=== PATIENT | female | born 1945 ===

== ENCOUNTER 2018-04-16 06:37 | Inpatient (IN) | payer OTHER ==
[2018-04-11 10:47] VITALS: BMI 25.5
[2018-04-16 07:20] LABS: HEMOGLOBIN 14.6 g/dL (12.0-16.0); MEAN CELL VOLUME 94.3 fl (81.0-99.0); MEAN CORPUSCULAR HEMOGLOBIN 31.6 pg (27.0-31.0); MEAN CORPUSCULAR HGB CONC 33.6 g/dL (33.0-37.0); RBC 4.61 Mil/uL (3.80-5.20); RED CELL DISTRIBUTION WIDTH 13.7 % (11.5-14.5); WHITE BLOOD COUNT 6.7 K/uL (4.8-10.8)
--- NOTE | 2018-04-16 07:20 | CP.PCM.HP ---
History of Present Illness - History of Present Illness History of Present Illness: PMD: Dr max Orthopedic: Dr Ledesma Chief complaint: Right knee pain HPI: This is a 73 years old female with hx of HTN, Hypothyroidism and Osteoarthritis of the right knee. She has been treated with Analgesics, right knee Intraarticular injections and physical therapy without much improvement. So because of the failure of conservative treatment, she has come for an elective Right Total knee replacement. PMH: HTN; Hypothyroidism PSH: Hysterectomy SH: No illegal drug use; no Alcohol use ; Never smoked; live with family FH: States: No known family hx Allergies; NKDA Medication: reviewed Present on Admission - Present on Admission Any Indicators Present on Admission: No History of DVT/PE: No History of Uncontrolled Diabetes: No Urinary Catheter: No Decubitus Ulcer Present: No Review of Systems - Constitutional Constitutional: absent: Anorexia, Chills, Fever, Lethargy - EENT Eyes: absent: Blurred Vision, Diplopia, Floaters, Requires Corrective Lenses Ears: absent: Decreased Hearing, Ear Discharge, Tinnitus Nose/Mouth/Throat: absent: Epistaxis, Nasal Congestion, Nasal Discharge, Sinus Pain, Sinus Pressure - Cardiovascular Cardiovascular: absent: Chest Pain, Dyspnea, Edema - Respiratory Respiratory: absent: Cough, Dyspnea, Wheezing, Stridor - Gastrointestinal Gastrointestinal: absent: Constipation, Diarrhea, Nausea, Vomiting - Genitourinary Genitourinary: absent: Dysuria, Flank Pain, Urinary Frequency - Musculoskeletal Musculoskeletal: Arthralgias. absent: Back Pain, Joint Swelling - Integumentary Integumentary: absent: Non-Healing Lesions, Pruritus, Rash, Sores, Striae, Swelling - Neurological Neurological: absent: Confusion, Dizziness, Headaches - Psychiatric Psychiatric: absent: Anxiety, Depression, Panic Attacks - Endocrine Endocrine: absent: Palpitations, Polydipsia, Polyphagia, Polyuria - Hematologic/Lymphatic Hematologic: absent: Easy Bleeding Past Patient History - Past Medical History & Family History Past Medical History?: Yes - Past Social History Smoking Status: Never Smoked Chewing Tobacco Use: No Cigar Use: No Alcohol: None Drugs: Denies Home Situation {Lives}: With Family - CARDIAC Hx Cardiac Disorders: Yes Hx Hypertension: Yes - PULMONARY Hx Respiratory Disorders: No - NEUROLOGICAL Hx Neurological Disorder: No - HEENT Hx HEENT Problems: Yes Hx Cataracts: Yes (left) - RENAL Hx Chronic Kidney Disease: No - ENDOCRINE/METABOLIC Hx Endocrine Disorders: Yes Hx Hypothyroidism: Yes - HEMATOLOGICAL/ONCOLOGICAL Hx Blood Disorders: No - INTEGUMENTARY Hx Dermatological Problems: No - MUSCULOSKELETAL/RHEUMATOLOGICAL Hx Musculoskeletal Disorders: Yes Hx Arthritis: Yes (knees) - GASTROINTESTINAL Hx Gastrointestinal Disorders: No - GENITOURINARY/GYNECOLOGICAL Hx Genitourinary Disorders: No - PSYCHIATRIC Hx Psychophysiologic Disorder: No - SURGICAL HISTORY Hx Surgeries: No - ANESTHESIA Hx Anesthesia: No Hx Anesthesia Reactions: No Meds Allergies/Adverse Reactions: Allergies Allergy/AdvReac Type Severity Reaction Status Date / Time No Known Allergies Allergy Verified 04/11/18 10:48 Physical Exam - Constitutional Appears: No Acute Distress - Head Exam Head Exam: ATRAUMATIC, NORMAL INSPECTION, NORMOCEPHALIC - Eye Exam Eye Exam: EOMI, Normal appearance Pupil Exam: NORMAL ACCOMODATION, PERRL - ENT Exam ENT Exam: Mucous Membranes Moist, Normal Exam, Normal External Ear Exam - Neck Exam Neck exam: Positive for: Full Rom, Normal Inspection. Negative for: Lymphadenopathy, Tenderness - Respiratory Exam Respiratory Exam: Clear to Auscultation Bilateral. absent: Rales, Rhonchi, Wheezes - Cardiovascular Exam Cardiovascular Exam: REGULAR RHYTHM, +S1, +S2 - GI/Abdominal Exam GI & Abdominal Exam: Normal Bowel Sounds, Soft. absent: Mass, Tenderness - Rectal Exam Rectal Exam: Deferred - Extremities Exam Extremities exam: Positive for: normal inspection Additional comments: Right knee painful of flexion - Back Exam Back exam: FULL ROM, NORMAL INSPECTION. absent: CVA tenderness (L), CVA tenderness (R) - Neurological Exam Neurological exam: Alert, CN II-XII Intact, Oriented x3, Reflexes Normal - Psychiatric Exam Psychiatric exam: Normal Affect, Normal Mood - Skin Skin Exam: Normal Color, Warm Results - Labs Result Diagrams: 04/16/18 06:55 Assessment & Plan - Assessment and Plan (Free Text) Assessment: #. Osteoarthritisof the Right knee #. HTN #. Hypothyroidism Plan: 73 years old female with hx of HTN, Hypothyroidism and Osteoarthritis of the right knee. She has been treated with Analgesics, right knee Intraarticular injections and physical therapy without much improvement. So because of the failure of conservative treatment, she has come for an elective Right Total knee replacement. #. Osteoarthritis of the Right knee - Consult Dr Ledesma - Orthopedic management - Pain management - OT/PY post surgery #. HTN - Norvasc - Follow blood pressure #. Hypothyroidism - Synthroid #. DVT prophylaxis with SCD/ Start Lovenox on 04/17/19 #. code status: Full - Date & Time Date: 04/16/18 Time: 07:19
--- NOTE | 2018-04-16 07:42 | CP.PCM.CON ---
History of Present Illness - History of Present Illness History of Present Illness: Orthopedic consult: Dr. Ledesma Patient is a 73 y/o female with PMH of HTN and hypothyroidism presents for elective R TKA. The patient has had chronic R knee pain for many years which has progressively worsened over the past few months. The pain has been resistant to conservative management with PT, oral medications as well as intra-articular injections. She normally ambulates with the use of a cane but has required a wheelchair to transfer due to the pain. The paint is located diffuse about the knee, dull in quality and intermittent. The pain is associated with swelling. She denies any radiation of pain, numbness or tingling. She also denies CP/SOB/N/V/D/fever/dysuria/melena. She also denies cardiac/pulmonary/thromboembolic events in the past. Review of Systems - Review of Systems All systems: reviewed and no additional remarkable complaints except Review of Systems: as per HPI Past Patient History - Past Medical History & Family History Past Medical History?: Yes Past Family History: Reviewed and not pertinent - Past Social History Smoking Status: Never Smoked Alcohol: None Drugs: Denies - CARDIAC Hx Cardiac Disorders: Yes Hx Hypertension: Yes - PULMONARY Hx Respiratory Disorders: No - NEUROLOGICAL Hx Neurological Disorder: No - HEENT Hx HEENT Problems: Yes Hx Cataracts: Yes (left) - RENAL Hx Chronic Kidney Disease: No - ENDOCRINE/METABOLIC Hx Endocrine Disorders: Yes Hx Hypothyroidism: Yes - HEMATOLOGICAL/ONCOLOGICAL Hx Blood Disorders: No - INTEGUMENTARY Hx Dermatological Problems: No - MUSCULOSKELETAL/RHEUMATOLOGICAL Hx Musculoskeletal Disorders: Yes Hx Arthritis: Yes (knees) - GASTROINTESTINAL Hx Gastrointestinal Disorders: No - GENITOURINARY/GYNECOLOGICAL Hx Genitourinary Disorders: No - PSYCHIATRIC Hx Psychophysiologic Disorder: No - SURGICAL HISTORY Hx Surgeries: Yes Hx Hysterectomy: Yes - ANESTHESIA Hx Anesthesia: Yes Hx Anesthesia Reactions: No Meds Allergies/Adverse Reactions: Allergies Allergy/AdvReac Type Severity Reaction Status Date / Time No Known Allergies Allergy Verified 04/11/18 10:48 - Medications Medications: Boniva, amlodipine, Vit D, calcium, pantoprazole, levothyroxine, Olapatadine Physical Exam - Constitutional Appears: Well, No Acute Distress - Head Exam Head Exam: ATRAUMATIC, NORMOCEPHALIC - Eye Exam Eye Exam: EOMI, Normal appearance, PERRL - ENT Exam ENT Exam: Mucous Membranes Moist - Respiratory Exam Respiratory Exam: Clear to Auscultation Bilateral, NORMAL BREATHING PATTERN - Cardiovascular Exam Cardiovascular Exam: +S1, +S2 - GI/Abdominal Exam GI & Abdominal Exam: Normal Bowel Sounds, Soft - Extremities Exam Additional comments: R knee: mild swelling, mild effusion, medial tenderness sensation intact SP/DP/TN motor intact EHL/FHL/TA/G pedal pulses intact comps soft NT b/l L knee: mild swelling, mild effusion, medial tenderness sensation intact SP/DP/TN motor intact EHL/FHL/TA/G pedal pulses intact - Neurological Exam Neurological exam: Alert, Oriented x3 - Psychiatric Exam Psychiatric exam: Normal Affect, Normal Mood - Skin Skin Exam: Normal Color, Warm Results - Labs Result Diagrams: 04/16/18 06:55 Labs: Laboratory Results - last 24 hr 04/16/18 06:55 BBK History Checked No verified bt Assessment & Plan (1) Osteoarthritis of right knee Assessment and Plan: -OR today for R TKA -admit to Hospitalist -medical clearance in chart -NPO -Risks/benefits/alternatives were explained to the patient who understands and agrees to proceed with the above procedure -above d/w Dr. Ledesma in agreement Status: Acute
[2018-04-16] MEDS ORDERED: Lactated Ringer's 1,000 ML IV ONE ×2 (07:49→10:45)
--- NOTE | 2018-04-16 08:46 | CP.PCM.CON ---
History of Present Illness - History of Present Illness History of Present Illness: THE PATIENT IS A 73 YEAR OLD FEMALE WHO WAS ADMITTED TODAY VIA SDS FOR A RIGHT TKR. SHE HAS LONG STANDING RIGHT KNEE OA THAT WAS NOT RELIEVED WITH CONSERVATIVE TREATMENT INCLUDING ORAL MEDICATIONS AND KNEE INJECTIONS. SHE HAS A DIFFICULT TIME AMBULATION. SHE ALSO HAS A HISTORY OF HYPERTENSION AND HYPOTHYROIDISM. SHE DENIES ANY HISTORY OF CAD, CHEST PAIN OR SOB. Past Patient History - Past Medical History & Family History Past Medical History?: Yes - Past Social History Smoking Status: Never Smoked - CARDIAC Hx Cardiac Disorders: Yes Hx Hypertension: Yes - PULMONARY Hx Respiratory Disorders: No - NEUROLOGICAL Hx Neurological Disorder: No - HEENT Hx HEENT Problems: Yes Hx Cataracts: Yes (left) - RENAL Hx Chronic Kidney Disease: No - ENDOCRINE/METABOLIC Hx Endocrine Disorders: Yes Hx Hypothyroidism: Yes - HEMATOLOGICAL/ONCOLOGICAL Hx Blood Disorders: No - INTEGUMENTARY Hx Dermatological Problems: No - MUSCULOSKELETAL/RHEUMATOLOGICAL Hx Musculoskeletal Disorders: Yes Hx Arthritis: Yes (knees) - GASTROINTESTINAL Hx Gastrointestinal Disorders: No - GENITOURINARY/GYNECOLOGICAL Hx Genitourinary Disorders: No - PSYCHIATRIC Hx Psychophysiologic Disorder: No - SURGICAL HISTORY Hx Surgeries: No - ANESTHESIA Hx Anesthesia: No Hx Anesthesia Reactions: No Meds Allergies/Adverse Reactions: Allergies Allergy/AdvReac Type Severity Reaction Status Date / Time No Known Allergies Allergy Verified 04/11/18 10:48 - Medications Medications: Current Medications Tranexamic Acid 1,000 mg/ (Sodium Chloride) 110 mls @ 12.5 mls/hr IVPB ONCE ONE Stop: 04/16/18 17:47 Physical Exam - Respiratory Exam Respiratory Exam: Clear to Auscultation Bilateral - Cardiovascular Exam Cardiovascular Exam: REGULAR RHYTHM, +S1, +S2 - Extremities Exam Additional comments: NO LE EDEMA - Additional Findings Additional findings: PAT LABS REVIEWED Results - Vital Signs Recent Vital Signs: Last Vital Signs Temp 98 F 04/16/18 07:40 Pulse 92 H 04/16/18 07:44 Resp 20 04/16/18 07:40 BP 153/66 H 04/16/18 07:40 Pulse Ox 98 04/16/18 07:40 - Labs Result Diagrams: 04/16/18 06:55 Labs: Laboratory Results - last 24 hr 04/16/18 04/16/18 06:55 06:55 WBC 6.7 RBC 4.61 Hgb 14.6 Hct 43.5 MCV 94.3 MCH 31.6 H MCHC 33.6 RDW 13.7 Plt Count 363 BBK History Checked No verified bt Assessment & Plan - Assessment and Plan (Free Text) Assessment: RIGHT KNEE OA HYPERTENSION HYPOTHYROIDISM Plan: PATIENT IS CLEARED FOR SURGERY
[2018-04-16] MEDS ORDERED: ceFAZolin IV 2 gm in Dextrose 2 GM/50 ML BAG IVPB ONE (08:52)
[2018-04-16] MEDS ORDERED: Thrombin Topical 5,000 Int Units Spray Kit ONE (08:52)
[2018-04-16] MEDS ORDERED: GELATIN SPONGE,ABSORB/PORCINE 1 EACH SPONGE TP ONE (08:52)
[2018-04-16] MEDS ORDERED: Bacitracin Ointment 30 GM TUBE ONE (08:54)
[2018-04-16] MEDS ORDERED: Propofol 10 mg/ml Inj (20 ML) ONE (09:00)
[2018-04-16] MEDS ORDERED: Tranexamic Acid 1,000 MG in Sodium Chloride 0.9% 100 ML IVPB ONE (09:00)
[2018-04-16] MEDS ORDERED: Rocuronium 10 mg/ml (5 ml) ONE ×2 (09:00→09:56)
[2018-04-16] MEDS ORDERED: oxyCODONE 10 mg Immediate Release Tab PO PRN (12:01)
[2018-04-16] MEDS ORDERED: Bupivacaine HCl 0.5% PF (30 ml) Inj ONE (12:04)
--- NOTE | 2018-04-16 12:32 | PCM.ANESB3 ---
Femoral Nerve Block - Femoral Nerve Block Date of Procedure: 04/16/18 Anesthesiologist: Estevan Reardon Pre-Procedure Diagnosis: Right TKR Post-Procedure Diagnosis: same Procedure Performed: Femoral Nerve Block Right - Procedure Femoral Nerve Block: The procedure was explained to the patient that it is for the post-operative pain management. Consent was obtained after a thorough discussion with the patient regarding the benefits and possible complications of local anesthetic block of the femoral nerve at the inguinal crease area. The patient was brought to the operating room and standard monitors were applied. Time-out was held with the circulating nurse to confirm the correct surgery and the appropriate block. After applying oxygen by nasal cannula and administering IV Sedation, patient was placed in supine position with fully extended lower extremities and the right groin exposed. The femoral artery was then carefully palpated. The ultrasound transducer was then applied to this area in the transverse plane and the femoral nerve was visualized lateral to the femoral artery and underneath the fascia iliaca. After thorough identification, the inguinal crease area was prepped with Betadine solution three times and 1 % Lidocaine was injected subcutaneously for topical anesthesia. At this point, a #22 gauge Stimuplex 2-inch needle was inserted immediately lateral to the femoral artery pulse at the inguinal crease and advanced perpendicularly. The needle was inserted to the ultrasound transducer in-plane towards the femoral nerve in a [id number] direction. Needle advancement was performed carefully under direct ultrasound visualization. Nerve stimulator was used and twitch of the quadriceps muscle was obtained at current of _0.3____ MA. After negative aspiration, _5____cc of _0.5____% ___bupiv was injected and this was followed with __20____ cc of _0.5 % ___bupiv___ . Under ultrasound guidance the local anesthetics were observed spreading below fascia iliaca and around the femoral nerve. The needle was removed intact and sterile dressing was applied. The patient had stable vital signs, was conscious and in no apparent distress. The patient tolerated the femoral nerve block well with stable vital signs and was prepared for subsequent surgery.
[2018-04-16] MEDS ORDERED: Neostigmine 1:1000 (1 mg/ml) Inj ONE (12:34)
--- NOTE | 2018-04-16 13:43 | PCM.SURG1 ---
Surgeon's Initial Post Op Note - Surgeon's Notes Surgeon: Callie Makeup Artist: ADAN Caro Type of Anesthesia: General Endo, Block Regional Anesthesia Administered By: DR Db Duffy Pre-Operative Diagnosis: tricompartmental O/A R knee. Anterior and posterior synovitis Operative Findings: tricompartmental O/A R knee. anterior anmd posterior synvoitis R knee. posterior capsular contracture. lateral patella contrcature Post-Operative Diagnosis: tricompartmental O/A R knee. anterior and posterior synovectomy. posterior capsular release. lateral patella release. computer navigation Operation Performed: R TKR. anterior and posterior synovectomy. postertior capsular release. lateral patella release. computer navigation Specimen/Specimens Removed: synovial fluid aspirate. blood Estimated Blood Loss: EBL {In ML}: 22 Blood Products Given: N/A Drains Used: No Drains, Chest Tubes Post-Op Condition: Fair Date of Surgery/Procedure: 04/16/18 Time of Surgery/Procedure: 10:05 (time in room 9AM)
--- NOTE | 2018-04-16 13:57 | RAD ---
Date of service: 04/16/2018 PROCEDURE: Right Knee Radiographs. HISTORY: s/p R TKA COMPARISON: None. FINDINGS: The patient is status post total right knee arthroplasty with prosthetic components seen in good alignment. A small amount expected air and fluid is seen in the suprapatellar bursa. Skin neri are present anteriorly. IMPRESSION: Status post total right knee arthroplasty.
[2018-04-16] MEDS: Lactated Ringer's 1,000 ML IV SCH (16:17)
[2018-04-16] MEDS: ceFAZolin IV 2 gm in Dextrose 2 GM/50 ML BAG IVPB SCH (17:55)
[2018-04-17] MEDS: ceFAZolin IV 2 gm in Dextrose 2 GM/50 ML BAG IVPB SCH (01:33)
[2018-04-17] MEDS: Lactated Ringer's 1,000 ML IV SCH (01:34)
[2018-04-17 06:27] LABS: BLOOD UREA NITROGEN 7 mg/dl (7-17); CALCIUM 8.8 mg/dL (8.4-10.2); GFR NON-AFRICAN AMERICAN > 60; HEMOGLOBIN 11.6 g/dL (12.0-16.0); MEAN CELL VOLUME 93.6 fl (81.0-99.0); MEAN CORPUSCULAR HEMOGLOBIN 32.3 pg (27.0-31.0); MEAN CORPUSCULAR HGB CONC 34.5 g/dL (33.0-37.0); RBC 3.59 Mil/uL (3.80-5.20); RED CELL DISTRIBUTION WIDTH 13.6 % (11.5-14.5); WHITE BLOOD COUNT 8.6 K/uL (4.8-10.8)
[2018-04-17 06:49] LABS: INR 1.1; PROTHROMBIN TIME 11.8 Seconds (9.8-13.1)
--- NOTE | 2018-04-17 08:32 | CP.PCM.PN ---
Subjective - Date & Time of Evaluation Date of Evaluation: 04/17/18 Time of Evaluation: 07:45 - Subjective Subjective: NO CHEST PAIN OR SOB PAIN AT RIGHT KNEE SURGICAL SITE Objective - Vital Signs/Intake and Output Vital Signs (last 24 hours): Temp Pulse Resp BP Pulse Ox 97.8 F 90 18 120/70 96 04/17/18 07:57 04/17/18 07:57 04/17/18 07:57 04/17/18 07:57 04/17/18 07:57 - Medications Medications: Current Medications Acetaminophen (Tylenol 325mg Tab) 975 mg PO Q8 [facility] Last Admin: 04/17/18 01:37 Dose: 975 mg Docusate Sodium (Colace) 100 mg PO BID [facility] Last Admin: 04/16/18 16:16 Dose: 100 mg Enoxaparin Sodium (Lovenox) 40 mg SC DAILY [facility]; Protocol Ferrous Sulfate (Feosol) 325 mg PO TID [facility] Last Admin: 04/16/18 16:16 Dose: 325 mg Folic Acid (Folic Acid) 1 mg PO DAILY [facility] Lactated Ringer's (Lactated Ringer's) 1,000 mls @ 75 mls/hr IV .[id number] [facility] Last Admin: 04/17/18 01:34 Dose: 75 mls/hr Morphine Sulfate (Morphine) 2 mg IVP Q4 PRN PRN Reason: Pain, severe (8-10) Ondansetron HCl (Zofran Inj) 4 mg IVP ONCE PRN PRN Reason: Nausea/Vomiting Oxycodone HCl (Oxycodone Immediate Release Tab) 10 mg PO Q4 PRN PRN Reason: Pain, moderate (4-7) - Labs Labs: 04/17/18 05:25 04/17/18 05:25 PT 11.8 Seconds (9.8-13.1) 04/17/18 05:25 INR 1.1 04/17/18 05:25 - Respiratory Exam Respiratory Exam: Clear to Ausculation Bilateral - Cardiovascular Exam Cardiovascular Exam: REGULAR RHYTHM, +S1, +S2 - Extremities Exam Additional comments: RLE IN IMMOBILIZER LLE NO EDEMA - Additional Findings Additional findings: OR NOTES REVIEWED WITH RIGHT TKR Assessment and Plan - Assessment and Plan (Free Text) Assessment: RIGHT TKR FOR SEVERE OA HYPERTENSION Plan: CONTINUE LOVENOX AND PAIN MEDICATIONS WILL RESUME AMLODIPINE ONCE BP BEGINS TO RISE
[2018-04-17] MEDS ORDERED: Enoxaparin 40 mg Syringe SC SCH (09:00)
--- NOTE | 2018-04-17 09:41 | CP.PCM.PN ---
Addendum entered by Sheila Cruz MD 04/17/18 17:55: Full Code Surrogate decision maker - son Viral Original Note: <Gerry Gonzalez - Last Filed: 04/17/18 09:37> Subjective - Date & Time of Evaluation Date of Evaluation: 04/17/18 Time of Evaluation: 08:00 - Subjective Subjective: Pt is seen and examined at bedside. Pt is s/p day 1 presented. Pt had no acute event overnight, Pt slept well, she was using her spirometer when seen. Pt have no complain, ready to see the PT/OT. Pt denies any chest pain sob, abd pain diarrhea constipation or any other symptoms Objective - Vital Signs/Intake and Output Vital Signs (last 24 hours): Temp Pulse Resp BP Pulse Ox 97.8 F 90 18 120/70 96 04/17/18 07:57 04/17/18 07:57 04/17/18 07:57 04/17/18 07:57 04/17/18 07:57 - Medications Medications: Current Medications Acetaminophen (Tylenol 325mg Tab) 975 mg PO Q8 [facility] Last Admin: 04/17/18 08:30 Dose: 975 mg Docusate Sodium (Colace) 100 mg PO BID [facility] Last Admin: 04/17/18 08:29 Dose: 100 mg Enoxaparin Sodium (Lovenox) 40 mg SC DAILY [facility]; Protocol Ferrous Sulfate (Feosol) 325 mg PO TID [facility] Last Admin: 04/17/18 08:29 Dose: 325 mg Folic Acid (Folic Acid) 1 mg PO DAILY [facility] Last Admin: 04/17/18 08:29 Dose: 1 mg Lactated Ringer's (Lactated Ringer's) 1,000 mls @ 75 mls/hr IV .[id number] [facility] Last Admin: 04/17/18 01:34 Dose: 75 mls/hr Morphine Sulfate (Morphine) 2 mg IVP Q4 PRN PRN Reason: Pain, severe (8-10) Ondansetron HCl (Zofran Inj) 4 mg IVP ONCE PRN PRN Reason: Nausea/Vomiting Oxycodone HCl (Oxycodone Immediate Release Tab) 10 mg PO Q4 PRN PRN Reason: Pain, moderate (4-7) - Labs Labs: 04/17/18 05:25 04/17/18 05:25 PT 11.8 Seconds (9.8-13.1) 04/17/18 05:25 INR 1.1 04/17/18 05:25 Assessment and Plan - Assessment and Plan (Free Text) Assessment: 73 years old female with hx of HTN, Hypothyroidism and Osteoarthritis of the right knee. Admitted for Right knee replacement. S/P day 1 Osteoarthritis of the Right knee s/p surgery day 1 Orthopedic management Pain management Acetomenophen for mild pain Morphine for mod to severe pain Will start OT/PY Acute anemia s/p surgery surgery Continue Ferrous Sulfate Continue Folic acid HTN Chornic Continue Home medication Norvasc Hypothyroidism Continue Home medication Synthroid DVT prophylaxis Continue Lovenox 40 sc code status: Full <Sheila Cruz - Last Filed: 04/17/18 15:56> Objective - Vital Signs/Intake and Output Vital Signs (last 24 hours): Temp Pulse Resp BP Pulse Ox 97.8 F 90 18 100/64 96 04/17/18 07:57 04/17/18 07:57 04/17/18 07:57 04/17/18 11:10 04/17/18 07:57 - Medications Medications: Current Medications Acetaminophen (Tylenol 325mg Tab) 975 mg PO Q8 [facility] Last Admin: 04/17/18 08:30 Dose: 975 mg Docusate Sodium (Colace) 100 mg PO BID [facility] Last Admin: 04/17/18 08:29 Dose: 100 mg Enoxaparin Sodium (Lovenox) 40 mg SC DAILY [facility]; Protocol Ferrous Sulfate (Feosol) 325 mg PO TID [facility] Last Admin: 04/17/18 08:29 Dose: 325 mg Folic Acid (Folic Acid) 1 mg PO DAILY [facility] Last Admin: 04/17/18 08:29 Dose: 1 mg Lactated Ringer's (Lactated Ringer's) 1,000 mls @ 75 mls/hr IV .[id number] [facility] Last Admin: 04/17/18 01:34 Dose: 75 mls/hr Morphine Sulfate (Morphine) 2 mg IVP Q4 PRN PRN Reason: Pain, severe (8-10) Ondansetron HCl (Zofran Inj) 4 mg IVP ONCE PRN PRN Reason: Nausea/Vomiting Oxycodone HCl (Oxycodone Immediate Release Tab) 10 mg PO Q4 PRN PRN Reason: Pain, moderate (4-7) Last Admin: 04/17/18 15:49 Dose: 10 mg - Labs Labs: 04/17/18 05:25 04/17/18 05:25 PT 11.8 Seconds (9.8-13.1) 04/17/18 05:25 INR 1.1 04/17/18 05:25 Attending/Attestation - Attestation I have personally seen and examined this patient.: Yes I have fully participated in the care of the patient.: Yes I have reviewed all pertinent clinical information, including history, physical exam and plan: Yes Notes (Text): s/p Right TKR - Pt is doing well post op - partcipated with PT this am - Pain controlled - Incentive spirometry - plan for d/c to [facility] in [place] in am Mild Anemia acute post op - very mild ( 11.6) , no need for transfusion - cont Ferrous
--- NOTE | 2018-04-17 10:40 | OP ---
PROCEDURE DATE: 04/16/2018 PREOPERATIVE DIAGNOSIS: Tricompartmental osteoarthritis of the right knee. POSTOPERATIVE DIAGNOSES: 1. Tricompartmental osteoarthritis of the right knee. 2. Tricompartmental synovitis. 3. Posterior capsular contracture. 4. Lateral patellar retinacular contracture. PROCEDURES: 1. Right total knee replacement arthroplasty. 2. Anterior and posterior synovectomy. 3. Posterior capsular release. 4. Lateral patellar retinacular release. 5. Computer navigation. SURGEON: Jesus Ledesma MD NUCLEAR CONTROL ROOM OPERATOR: OSBALDO Johnson, certified registered nursing first line production supervisor. ANESTHESIA: General endotracheal anesthesia. COMPLICATIONS: No complications. DRAINS: No drains. OPERATIVE INDICATION: The patient is a 73-year-old woman who presents with severe right knee pain and restricted range of motion with inability to ambulate. The patient presents for knee replacement arthroplasty at her insistence. Pros, cons, risks, and benefits of replacement arthroplasty were discussed. The possibility of mechanical failure, infection, thromboembolic disease, possibility of secondary or tertiary surgery were discussed with the patient and her son and [id number]. The patient can no longer withstand the discomfort. OPERATIVE PROCEDURE: After having obtained informed consent, after having identified side, site, and procedure, and critical pause/time-out and after the satisfactory induction of the anesthetic, the patient is identified as Herb Peña in the supine position with all bony prominences well padded. The right lower extremity was prepped and free draped in the usual fashion for lower extremity surgery. Tourniquet had been applied, but was not yet inflated. After exsanguinating the limb using a 6-inch Esmarch bandage, the tourniquet which had been applied was inflated to 350 mmHg. Straight midline approach was made to the knee. The skin incision was carried down through the skin and subcutaneous tissue. Medial arthrotomy was accomplished. Patella was everted. The knee was flexed. Dissection was carried around posteromedially to the direct head of the semimembranosus tendon. A portion of the patellar ligament was elevated. Anterior and posterior cruciate ligaments were excised. Medial and lateral meniscectomies were accomplished. This having been accomplished, the tibia was dislocated anteriorly, and the initial osteotomy of the arthroplasty was accomplished on the tibial side. Computer navigation at this point in time commences. The anterior tibial strut for the KneeAlign computer navigation/accelerometer device was placed. At this point in time, the offset had noted the distance to the posterior insertion of the anterior cruciate ligament. Medial and lateral accelerometer was placed as was the sensor. The medial malleolus was registered as was the lateral malleolus. At this point in time, the cut on the tibial side was set to 0 degrees varus-valgus and 3 degrees posterior slope. The initial osteotomy was accomplished 10 mm below the tibial surface. The tibia was prepared. Guidance to rotation being the lateral aspect of tibial condyle, mid malleolar axis, medial third of the tibial tuberosity. This having been accomplished, notch osteophytes and border osteophytes were accomplished. The pin was placed in the superior aspect of the intercondylar notch. This having been accomplished, the accelerometer was placed as was the sensor. The femoral alignment was 0 degrees varus-valgus. The distal cut was pushed to the depth of 10 mm. The hip center had been registered. Distal cut having been accomplished, anterior and posterior sizing was for #1 femoral component. The 4-in-1 block was fixed to the distal aspect of the femur after the distal cut. Anterior and posterior osteotomies were accomplished. The chamfer cuts were accomplished as well. At this point in time, the lamina net software developer was placed. There was found to be evidence of a posterior capsular contracture. The posterior capsule was released. The lateral patella had been released as well. Anterior and posterior synovectomy was accomplished with the electrocautery. The depth of the patella was noted to 27 mm. Freehand patella osteotomy was accomplished, and the 28 mm patella was employed. At this point in time, the trailing was accomplished with the #1 cemented tibial component, #1 cemented femoral component, 11 mm polyethylene, and 29 mm patella. Flexion/extension balance was excellent. Patella balance was excellent. A lateral patellar retinacular release had been accomplished as well as the posterior capsular release. This having been accomplished, the femur, tibia, and patella were prepared. The #1 cemented femoral component was applied, #1 cemented tibial tray, 11 mm polyethylene, 29 mm patella. The wound was thoroughly irrigated. Tourniquet was deflated. Hemostasis was controlled within the Aquamantys. Closure was in layers with #1 and #2 FiberWire, followed by 0 Quill, Vicryl, and neri to skin. Blood loss approximately 30 mL. Kevin Reyes compression dressing and knee immobilizers applied. Jesus Ledesma MD
--- NOTE | 2018-04-17 13:53 | CP.PCM.PN ---
Subjective - Date & Time of Evaluation Date of Evaluation: 04/17/18 Time of Evaluation: 07:30 - Subjective Subjective: Patient seen and examined at bedside comfortable. Pain well controlled. No acute events overnight. Denies CP/SOB/N/V/D/fever. Objective - Vital Signs/Intake and Output Vital Signs (last 24 hours): Temp Pulse Resp BP Pulse Ox 97.8 F 90 18 100/64 96 04/17/18 07:57 04/17/18 07:57 04/17/18 07:57 04/17/18 11:10 04/17/18 07:57 - Medications Medications: Current Medications Acetaminophen (Tylenol 325mg Tab) 975 mg PO Q8 [facility] Last Admin: 04/17/18 08:30 Dose: 975 mg Docusate Sodium (Colace) 100 mg PO BID [facility] Last Admin: 04/17/18 08:29 Dose: 100 mg Enoxaparin Sodium (Lovenox) 40 mg SC DAILY [facility]; Protocol Ferrous Sulfate (Feosol) 325 mg PO TID [facility] Last Admin: 04/17/18 08:29 Dose: 325 mg Folic Acid (Folic Acid) 1 mg PO DAILY [facility] Last Admin: 04/17/18 08:29 Dose: 1 mg Lactated Ringer's (Lactated Ringer's) 1,000 mls @ 75 mls/hr IV .[id number] [facility] Last Admin: 04/17/18 01:34 Dose: 75 mls/hr Morphine Sulfate (Morphine) 2 mg IVP Q4 PRN PRN Reason: Pain, severe (8-10) Ondansetron HCl (Zofran Inj) 4 mg IVP ONCE PRN PRN Reason: Nausea/Vomiting Oxycodone HCl (Oxycodone Immediate Release Tab) 10 mg PO Q4 PRN PRN Reason: Pain, moderate (4-7) - Labs Labs: 04/17/18 05:25 04/17/18 05:25 PT 11.8 Seconds (9.8-13.1) 04/17/18 05:25 INR 1.1 04/17/18 05:25 - Extremities Exam Additional comments: R knee: Knee imm in place, dressings CDI sensation intact SP/DP/TN motor intact EHL/FHL/TA/G pedal pulses intact comps soft NT b/l Assessment and Plan (1) Osteoarthritis of right knee Assessment & Plan: POD #1 s/p R TKA doing well -pain control -PT/OT FWB -CPM and knee imm as per order -complete postop abx dosage -DVT ppx -orthopedically stable -d/c planning for tomorrow -above d/w Dr. Ledesma in agreement Status: Acute
[2018-04-17 23:32] VITALS: RESP 18
[2018-04-18 06:34] LABS: HEMOGLOBIN 10.8 g/dL (12.0-16.0); MEAN CELL VOLUME 94.8 fl (81.0-99.0); MEAN CORPUSCULAR HEMOGLOBIN 32.5 pg (27.0-31.0); MEAN CORPUSCULAR HGB CONC 34.2 g/dL (33.0-37.0); RBC 3.33 Mil/uL (3.80-5.20); RED CELL DISTRIBUTION WIDTH 13.8 % (11.5-14.5); WHITE BLOOD COUNT 10.6 K/uL (4.8-10.8)
[2018-04-18 07:05] LABS: BLOOD UREA NITROGEN 10 mg/dl (7-17); GFR NON-AFRICAN AMERICAN > 60
[2018-04-18 08:08] VITALS: PULSE 100; TEMP 98.3; O2SAT 96
--- NOTE | 2018-04-18 09:09 | CP.PCM.PN ---
Subjective - Date & Time of Evaluation Date of Evaluation: 04/18/18 Time of Evaluation: 07:30 - Subjective Subjective: NO CHEST PAIN OR SOB JUST PAIN AT RIGHT KNEE SURGICAL SITE Objective - Vital Signs/Intake and Output Vital Signs (last 24 hours): Temp Pulse Resp BP Pulse Ox 98.3 F 100 H 18 147/72 96 04/18/18 08:07 04/18/18 08:07 04/18/18 08:07 04/18/18 08:07 04/18/18 08:07 - Medications Medications: Current Medications Acetaminophen (Tylenol 325mg Tab) 975 mg PO Q8 [facility] Last Admin: 04/18/18 08:53 Dose: 975 mg Docusate Sodium (Colace) 100 mg PO BID [facility] Last Admin: 04/18/18 08:50 Dose: 100 mg Enoxaparin Sodium (Lovenox) 40 mg SC DAILY [facility]; Protocol Last Admin: 04/18/18 08:50 Dose: 40 mg Ferrous Sulfate (Feosol) 325 mg PO TID [facility] Last Admin: 04/18/18 08:50 Dose: 325 mg Folic Acid (Folic Acid) 1 mg PO DAILY [facility] Last Admin: 04/18/18 08:50 Dose: 1 mg Lactated Ringer's (Lactated Ringer's) 1,000 mls @ 75 mls/hr IV .[id number] [facility] Last Admin: 04/17/18 01:34 Dose: 75 mls/hr Morphine Sulfate (Morphine) 2 mg IVP Q4 PRN PRN Reason: Pain, severe (8-10) Last Admin: 04/18/18 08:53 Dose: 2 mg Ondansetron HCl (Zofran Inj) 4 mg IVP ONCE PRN PRN Reason: Nausea/Vomiting Oxycodone HCl (Oxycodone Immediate Release Tab) 10 mg PO Q4 PRN PRN Reason: Pain, moderate (4-7) Last Admin: 04/17/18 15:49 Dose: 10 mg - Labs Labs: 04/18/18 05:25 04/18/18 05:25 PT 11.8 Seconds (9.8-13.1) 04/17/18 05:25 INR 1.1 04/17/18 05:25 - Respiratory Exam Respiratory Exam: Clear to Ausculation Bilateral - Cardiovascular Exam Cardiovascular Exam: REGULAR RHYTHM, +S1, +S2 Assessment and Plan - Assessment and Plan (Free Text) Assessment: RIGHT TKR HYPERTENSION Plan: FOR PRABABLE DISCHARGE TODAY WILL RESUME AMLODIPINE AT 5MGS PO DAILY FU WITH LMD
--- NOTE | 2018-04-18 09:23 | CP.PCM.PN ---
Subjective - Date & Time of Evaluation Date of Evaluation: 04/18/18 Time of Evaluation: 07:30 - Subjective Subjective: Patient seen and examined at bedside comfortable. Son at bedside. Pain well controlled. Tolerated PT well. No new complaints. Denies CP/SOB/N/V/D/fever. Objective - Vital Signs/Intake and Output Vital Signs (last 24 hours): Temp Pulse Resp BP Pulse Ox 98.3 F 100 H 18 147/72 96 04/18/18 08:07 04/18/18 08:07 04/18/18 08:07 04/18/18 08:07 04/18/18 08:07 - Medications Medications: Current Medications Acetaminophen (Tylenol 325mg Tab) 975 mg PO Q8 [facility] Last Admin: 04/18/18 08:53 Dose: 975 mg Amlodipine Besylate (Norvasc) 5 mg PO DAILY [facility] Docusate Sodium (Colace) 100 mg PO BID [facility] Last Admin: 04/18/18 08:50 Dose: 100 mg Enoxaparin Sodium (Lovenox) 40 mg SC DAILY [facility]; Protocol Last Admin: 04/18/18 08:50 Dose: 40 mg Ferrous Sulfate (Feosol) 325 mg PO TID [facility] Last Admin: 04/18/18 08:50 Dose: 325 mg Folic Acid (Folic Acid) 1 mg PO DAILY [facility] Last Admin: 04/18/18 08:50 Dose: 1 mg Lactated Ringer's (Lactated Ringer's) 1,000 mls @ 75 mls/hr IV .[id number] [facility] Last Admin: 04/17/18 01:34 Dose: 75 mls/hr Morphine Sulfate (Morphine) 2 mg IVP Q4 PRN PRN Reason: Pain, severe (8-10) Last Admin: 04/18/18 08:53 Dose: 2 mg Ondansetron HCl (Zofran Inj) 4 mg IVP ONCE PRN PRN Reason: Nausea/Vomiting Oxycodone HCl (Oxycodone Immediate Release Tab) 10 mg PO Q4 PRN PRN Reason: Pain, moderate (4-7) Last Admin: 04/17/18 15:49 Dose: 10 mg - Labs Labs: 04/18/18 05:25 04/18/18 05:25 PT 11.8 Seconds (9.8-13.1) 04/17/18 05:25 INR 1.1 04/17/18 05:25 - Extremities Exam Additional comments: R knee: Knee imm in place, dressings CDI, Dressings removed revealing wound CDI with neri sensation intact SP/DP/TN motor intact EHL/FHL/TA/G pedal pulses intact comps soft NT b/l Assessment and Plan (1) Osteoarthritis of right knee Assessment & Plan: POD #2 s/p R TKA doing well -Dressings changed today -PT/OT FWB -CPM and knee imm as per order -DVT ppx -orthopedically stable for d/c to rehab today -f/u in office in 10-14 days -above d/w Dr. Ledesma in agreement Status: Acute
--- NOTE | 2018-04-18 09:55 | CP.PCM.DIS ---
<Gerry Gonzalez - Last Filed: 04/18/18 10:30> Provider - Provider Date of Admission: 04/16/18 09:56 Attending physician: Zeke Leon Primary care physician: Jesus Luna III, MD Time Spent in preparation of Discharge (in minutes): 20 Diagnosis - Discharge Diagnosis (1) Osteoarthritis of right knee Status: Chronic (2) Acute anemia Status: Acute (3) Hypertension Status: Chronic (4) Hypothyroid Status: Chronic (5) Vitamin D deficiency Status: Chronic Hospital Course - Lab Results Lab Results: Most Recent Lab Values WBC 10.6 K/uL (4.8-10.8) 04/18/18 05:25 RBC 3.33 Mil/uL (3.80-5.20) L 04/18/18 05:25 Hgb 10.8 g/dL (12.0-16.0) L 04/18/18 05:25 Hct 31.6 % (34.0-47.0) L 04/18/18 05:25 MCV 94.8 fl (81.0-99.0) 04/18/18 05:25 MCH 32.5 pg (27.0-31.0) H 04/18/18 05:25 MCHC 34.2 g/dL (33.0-37.0) 04/18/18 05:25 RDW 13.8 % (11.5-14.5) 04/18/18 05:25 Plt Count 268 K/uL (130-400) 04/18/18 05:25 PT 11.8 Seconds (9.8-13.1) 04/17/18 05:25 INR 1.1 04/17/18 05:25 Sodium 134 mmol/l (132-148) 04/18/18 05:25 Potassium 4.7 MMOL/L (3.6-5.0) 04/18/18 05:25 Chloride 99 mmol/L (98-107) 04/18/18 05:25 Carbon Dioxide 27 mmol/L (22-30) 04/18/18 05:25 Anion Gap 13 (10-20) 04/18/18 05:25 BUN 10 mg/dl (7-17) 04/18/18 05:25 Creatinine 0.6 mg/dl (0.7-1.2) L 04/18/18 05:25 Est GFR ( Amer) > 60 04/18/18 05:25 Est GFR (Non-Af Amer) > 60 04/18/18 05:25 POC Glucose (mg/dL) 245 mg/dL (65-110) H 04/17/18 10:11 Random Glucose 232 mg/dL (65-105) H 04/18/18 05:25 Calcium 9.0 mg/dL (8.4-10.2) 04/18/18 05:25 25-OH Vitamin D Total 29.7 NG/ML (30.0-100.0) L 04/17/18 05:25 Blood Type B POSITIVE 04/16/18 06:55 Blood Type Confirm B POSITIVE 04/16/18 07:40 Antibody Screen Negative 04/16/18 06:55 BBK History Checked No verified bt 04/16/18 06:55 - Hospital Course Hospital Course: 73 years old female with hx of HTN, Hypothyroidism and Osteoarthritis of the right knee. Admitted for Right knee replacement. Surgery was done at 04/16. today is s/p day 2. Pt pain is controlled with medication, she is using her spirometer as advised. Pt anemia was treated with Ferrous sulfate, blood pressure and hypothyroid with home medication. PT/OT was on the case, pt was able to ambulate to bathroom with help. Pt chart were reviewed, Pt is stable, vitals are WNL, pt is comfortable and ready to go to Rehab. Surgery PT/OT and Medical team clear pt. Pt will be discharged to Rehab as r ecommended Pt should continue taking her Blood pressure medication. Pt should continue taking her thyroid medication. Pt need to follow up with Surgery in 12-14 days. Discharge Exam - Head Exam Head Exam: ATRAUMATIC, NORMAL INSPECTION, NORMOCEPHALIC - Eye Exam Eye Exam: EOMI, Normal appearance, PERRL Pupil Exam: NORMAL ACCOMODATION, PERRL - Respiratory Exam Respiratory Exam: Clear to PA & Lateral, NORMAL BREATHING PATTERN, UNREMARKABLE. absent: Rales, Rhonchi - Cardiovascular Exam Cardiovascular Exam: REGULAR RHYTHM, RRR, +S2. absent: +S1, +S4, Systolic Murmur - GI/Abdominal Exam GI & Abdominal Exam: Normal Bowel Sounds, Unremarkable. absent: Distended, Firm, Guarding - Extremities Exam Extremities exam: full ROM Additional comments: ashley wrap noted on RIGHT knee and leg. - Back Exam Back exam: FULL ROM. absent: CVA tenderness (L), CVA tenderness (R) - Neurological Exam Neurological exam: Alert, Oriented x3 - Psychiatric Exam Psychiatric exam: Normal Affect, Normal Mood - Skin Skin Exam: Dry, Intact, Normal Color, Warm Discharge Plan - Follow Up Plan Condition: STABLE Disposition: REHAB FACILITY/REHAB UNIT Patient education suggested?: Yes Additional Instructions: ff up with Dr Luna in 7-10 days Cont CPM KNee Immobilizer when in bed. Referrals: Jesus Luna III, MD [Primary Care Provider] - <Sheila Cruz - Last Filed: 04/18/18 18:38> Provider - Provider Date of Admission: 04/16/18 09:56 Attending physician: Zeke Leon Primary care physician: Jesus Luna III, MD Hospital Course - Lab Results Lab Results: Most Recent Lab Values WBC 10.6 K/uL (4.8-10.8) 04/18/18 05:25 RBC 3.33 Mil/uL (3.80-5.20) L 04/18/18 05:25 Hgb 10.8 g/dL (12.0-16.0) L 04/18/18 05:25 Hct 31.6 % (34.0-47.0) L 04/18/18 05:25 MCV 94.8 fl (81.0-99.0) 04/18/18 05:25 MCH 32.5 pg (27.0-31.0) H 04/18/18 05:25 MCHC 34.2 g/dL (33.0-37.0) 04/18/18 05:25 RDW 13.8 % (11.5-14.5) 04/18/18 05:25 Plt Count 268 K/uL (130-400) 04/18/18 05:25 PT 11.8 Seconds (9.8-13.1) 04/17/18 05:25 INR 1.1 04/17/18 05:25 Sodium 134 mmol/l (132-148) 04/18/18 05:25 Potassium 4.7 MMOL/L (3.6-5.0) 04/18/18 05:25 Chloride 99 mmol/L (98-107) 04/18/18 05:25 Carbon Dioxide 27 mmol/L (22-30) 04/18/18 05:25 Anion Gap 13 (10-20) 04/18/18 05:25 BUN 10 mg/dl (7-17) 04/18/18 05:25 Creatinine 0.6 mg/dl (0.7-1.2) L 04/18/18 05:25 Est GFR ( Amer) > 60 04/18/18 05:25 Est GFR (Non-Af Amer) > 60 04/18/18 05:25 POC Glucose (mg/dL) 245 mg/dL (65-110) H 04/17/18 10:11 Random Glucose 232 mg/dL (65-105) H 04/18/18 05:25 Calcium 9.0 mg/dL (8.4-10.2) 04/18/18 05:25 25-OH Vitamin D Total 29.7 NG/ML (30.0-100.0) L 04/17/18 05:25 Blood Type B POSITIVE 04/16/18 06:55 Blood Type Confirm B POSITIVE 04/16/18 07:40 Antibody Screen Negative 04/16/18 06:55 BBK History Checked No verified bt 04/16/18 06:55 Attending/Attestation - Attestation I have personally seen and examined this patient.: Yes I have fully participated in the care of the patient.: Yes I have reviewed all pertinent clinical information, including history, physical exam and plan: Yes
[2018-04-18 11:02] VITALS: BP 128/70
--- NOTE | 2018-04-22 08:56 | PQF ---
PROVIDER RESPONSE TEXT: Acute blood loss anemia, mild REVIEWER QUERY TEXT: Anemia Type Anemia is documented in the Medical Record. Please specify the cause (includes suspected or probable cause) Such as: -- Due to acute blood loss -- Due to chronic blood loss -- Due to iron deficiency -- Due to postoperative blood loss -- Due to chronic disease -- Other, please specify The patient's Clinical Indicators include: 04/17 progress note "acte anemia status post surgery." Query created by: Rubi Allen on 04/20/2018 7:39 AM Electronically signed by: Sheila Cruz MD 04/22/2018 8:53 AM
== END 2018-04-18 13:25 | DRG 470 ==
LOC: H.OPSURG 06:37 → H.MEDSURG1 09:56
PROVIDERS: ADMIT Internal Medicine; ATTEND Internal Medicine
PROC: 0SNC0ZZ Release Right Knee Joint, Open Approach (ICD-10-PCS; 2018-04-16)
PROC: 8E0YXBZ Computer Assisted Procedure of Lower Extremity (ICD-10-PCS; 2018-04-16)
PROC: 3E0T3BZ Introduction of Anesthetic Agent into Peripheral Nerves and Plexi, Percutaneous Approach (ICD-10-PCS; 2018-04-16)
PROC: 0SRC0J9 Replacement of Right Knee Joint with Synthetic Substitute, Cemented, Open Approach (ICD-10-PCS; principal; 2018-04-16 10:15)
PROC: 0SBC0ZZ Excision of Right Knee Joint, Open Approach (ICD-10-PCS; 2018-04-16 10:15)
DX: M17.11 Unilateral primary osteoarthritis, right knee (principal); D62 Acute posthemorrhagic anemia; M65.9 Synovitis and tenosynovitis, unspecified; E03.9 Hypothyroidism, unspecified; I10 Essential (primary) hypertension; M24.561 Contracture, right knee; E55.9 Vitamin D deficiency, unspecified

== ENCOUNTER 2018-10-04 06:22 | Inpatient (IN) | payer OTHER ==
[2018-09-27 08:31] VITALS: BMI 25.9
--- NOTE | 2018-10-04 07:56 | CP.PCM.CON ---
History of Present Illness - History of Present Illness History of Present Illness: Orthopedic consult: Dr. Ledesma Patient is a 73 y/o female with PMH of HTN and hypothyroidism presents for elective L TKA. The patient has had chronic L knee pain for many years which has progressively worsened over the past few months. The pain has been resistant to conservative management with PT, oral medications as well as intra-articular injections. The paint is located diffuse about the knee, dull in quality and intermittent. The pain is associated with swelling. She denies any radiation of pain, numbness or tingling. She also denies CP/SOB/N/V/D/fever/dysuria/melena. She also denies cardiac/pulmonary/thromboembolic events in the past. She has had successful R TKA performed on 04/16/18. PMH: HTN, hypothyroidism PSH: R TKA, hysterectomy meds: as per med rec allergy: NKDA SH: denies tobacco/ETOH/drug use Review of Systems - Review of Systems All systems: reviewed and no additional remarkable complaints except Review of Systems: as per HPI Past Patient History - Past Medical History & Family History Past Medical History?: Yes Past Family History: Reviewed and not pertinent - Past Social History Smoking Status: Never Smoked - CARDIAC Hx Cardiac Disorders: Yes Hx Hypertension: Yes - PULMONARY Hx Respiratory Disorders: No - NEUROLOGICAL Hx Neurological Disorder: No - HEENT Hx HEENT Problems: Yes Hx Cataracts: Yes (LEFT EYE) - RENAL Hx Chronic Kidney Disease: No - ENDOCRINE/METABOLIC Hx Endocrine Disorders: Yes Hx Hypothyroidism: Yes - HEMATOLOGICAL/ONCOLOGICAL Hx Blood Disorders: No Hx Blood Transfusions: No - INTEGUMENTARY Hx Dermatological Problems: No - MUSCULOSKELETAL/RHEUMATOLOGICAL Hx Musculoskeletal Disorders: Yes Hx Arthritis: Yes (knees) Hx Falls: No Hx Osteoarthritis: Yes - GASTROINTESTINAL Hx Gastrointestinal Disorders: No - GENITOURINARY/GYNECOLOGICAL Hx Genitourinary Disorders: No - PSYCHIATRIC Hx Emotional Abuse: No Hx Physical Abuse: No - SURGICAL HISTORY Hx Surgeries: Yes Hx Cataract Extraction: Yes (left) Hx Hysterectomy: Yes Other/Comment: HYSTERECTOMY-2010;CATARACT-LEFT EYE;RIGHT TOTAL KNEE-2017 - ANESTHESIA Hx Anesthesia: Yes Hx Anesthesia Reactions: No Hx Malignant Hyperthermia: No Has any member of the family had a problem w/ anesthesia?: No Meds Allergies/Adverse Reactions: Allergies Allergy/AdvReac Type Severity Reaction Status Date / Time No Known Allergies Allergy Verified 10/04/18 07:41 Physical Exam - Constitutional Appears: Well, No Acute Distress - Head Exam Head Exam: ATRAUMATIC, NORMOCEPHALIC - Eye Exam Eye Exam: EOMI, Normal appearance - ENT Exam ENT Exam: Mucous Membranes Moist - Respiratory Exam Respiratory Exam: NORMAL BREATHING PATTERN - Extremities Exam Additional comments: L knee: valgus deformity no lesions/masses/erythema moderate swelling and effusion sensation intact SP/DP/TN motor intact EHL/FHL/TA/G pedal pulses intact calves soft NT b/l - Neurological Exam Neurological exam: Alert, Oriented x3 - Psychiatric Exam Psychiatric exam: Normal Affect, Normal Mood - Skin Skin Exam: Normal Color Results - Vital Signs Recent Vital Signs: Last Vital Signs Temp 97.7 F 10/04/18 07:27 Pulse 91 H 10/04/18 07:35 Resp 18 10/04/18 07:27 BP 156/78 H 10/04/18 07:27 Pulse Ox 97 10/04/18 07:27 - Impressions Impression: Xray of left knee from outside facility reveals left knee osteoarthritis. Assessment & Plan (1) Osteoarthritis of left knee Assessment and Plan: -OR today for L TKA -admit to Hospitalist -medical clearance in chart -NPO -Risks/benefits/alternatives were explained to the patient who understands and agrees to proceed with the above procedure -above d/w Dr. Ledesma in agreement Status: Acute
--- NOTE | 2018-10-04 08:02 | CP.PCM.HP ---
History of Present Illness - History of Present Illness History of Present Illness: Chief complaint: Right knee pain HPI: This is a 73 years old female with hx of HTN, Hypothyroidism and Osteoarthritis of the left knee. She has been treated with Analgesics, right knee Intraarticular injections and physical therapy without much improvement. So because of the failure of conservative treatment, she has come for an elective left Total knee replacement. PMD: Dr max Orthopedic: Dr Ledesma PMH: HTN; Hypothyroidism PSH: Hysterectomy, R Knee TKR march 2018. SH: No illegal drug use; no Alcohol use ; Never smoked; live with family FH: States: No known family hx Allergies; NKDA Medication: reviewed Present on Admission - Present on Admission Any Indicators Present on Admission: No Past Patient History - Past Medical History & Family History Past Medical History?: Yes - Past Social History Smoking Status: Never Smoked - CARDIAC Hx Cardiac Disorders: Yes Hx Hypertension: Yes - PULMONARY Hx Respiratory Disorders: No - NEUROLOGICAL Hx Neurological Disorder: No - HEENT Hx HEENT Problems: Yes Hx Cataracts: Yes (LEFT EYE) - RENAL Hx Chronic Kidney Disease: No - ENDOCRINE/METABOLIC Hx Endocrine Disorders: Yes Hx Hypothyroidism: Yes - HEMATOLOGICAL/ONCOLOGICAL Hx Blood Disorders: No Hx Blood Transfusions: No - INTEGUMENTARY Hx Dermatological Problems: No - MUSCULOSKELETAL/RHEUMATOLOGICAL Hx Musculoskeletal Disorders: Yes Hx Arthritis: Yes (knees) Hx Falls: No Hx Osteoarthritis: Yes - GASTROINTESTINAL Hx Gastrointestinal Disorders: No - GENITOURINARY/GYNECOLOGICAL Hx Genitourinary Disorders: No - PSYCHIATRIC Hx Emotional Abuse: No Hx Physical Abuse: No - SURGICAL HISTORY Hx Surgeries: Yes Hx Cataract Extraction: Yes (left) Hx Hysterectomy: Yes Other/Comment: HYSTERECTOMY-2010;CATARACT-LEFT EYE;RIGHT TOTAL KNEE-2017 - ANESTHESIA Hx Anesthesia: Yes Hx Anesthesia Reactions: No Hx Malignant Hyperthermia: No Has any member of the family had a problem w/ anesthesia?: No Meds Allergies/Adverse Reactions: Allergies Allergy/AdvReac Type Severity Reaction Status Date / Time No Known Allergies Allergy Verified 10/04/18 07:41 Physical Exam - Constitutional Appears: Well, Non-toxic, No Acute Distress - Head Exam Head Exam: ATRAUMATIC, NORMOCEPHALIC - Eye Exam Eye Exam: Normal appearance Pupil Exam: NORMAL ACCOMODATION - ENT Exam ENT Exam: Mucous Membranes Moist - Respiratory Exam Respiratory Exam: Clear to Auscultation Bilateral, NORMAL BREATHING PATTERN - Cardiovascular Exam Cardiovascular Exam: REGULAR RHYTHM - GI/Abdominal Exam GI & Abdominal Exam: Normal Bowel Sounds, Soft - Extremities Exam Additional comments: left knee pain with ROM - Neurological Exam Neurological exam: Alert, Oriented x3 - Psychiatric Exam Psychiatric exam: Normal Affect - Skin Skin Exam: Normal Color Results - Vital Signs Recent Vital Signs: Last Vital Signs Temp 97.7 F 10/04/18 07:27 Pulse 91 H 10/04/18 07:35 Resp 18 10/04/18 07:27 BP 156/78 H 10/04/18 07:27 Pulse Ox 97 10/04/18 07:27 Assessment & Plan - Assessment and Plan (Free Text) Assessment: 73 years old female with hx of HTN, Hypothyroidism and Osteoarthritis of the right knee. She has been treated with Analgesics, left knee Intraarticular injections and physical therapy without much improvement. So because of the failure of conservative treatment, she has come for an elective left Total knee replacement Plan: Osteoarthritis of the Left knee - Consult Dr Ledesma - Orthopedic management - Pain management - OT/PT post surgery- - Per Vasu Claloway, patient most likely to go home rather than [facility] port/op after pain is controlled. HTN - Norvasc - Follow blood pressure Hypothyroidism - Synthroid DVT prophylaxis: SCD code status: Full
[2018-10-04] MEDS ORDERED: Bacitracin Ointment 30 GM TUBE ONE (08:09)
[2018-10-04] MEDS ORDERED: Absorbable Gelatin Sponge Size 12-7 ONE (08:09)
[2018-10-04] MEDS ORDERED: Thrombin Topical 5,000 Int Units Spray Kit ONE (08:10)
[2018-10-04] MEDS ORDERED: Tranexamic Acid 1,000 MG in Sodium Chloride 0.9% 100 ML IVPB ONE (08:11)
[2018-10-04] MEDS ORDERED: Lactated Ringer's 1,000 ML IV ONE (08:24)
[2018-10-04] MEDS ORDERED: Propofol 10 mg/ml Inj (20 ML) ONE (08:57)
[2018-10-04] MEDS ORDERED: Midazolam 2 MG/2 ML VIAL ONE (08:58)
[2018-10-04] MEDS ORDERED: Lidocaine 2% MPF (5 ml) Inj ONE (08:58)
[2018-10-04] MEDS ORDERED: Bupivacaine HCl 0.5% PF (30 ml) Inj ONE (09:00)
[2018-10-04 09:03] LABS: SQUAMOUS EPITHIAL < 1 /hpf (0-5); URINE BACTERIA RARE (<OCC); URINE BILIRUBIN NEGATIVE (NEGATIVE); URINE BLOOD NEGATIVE (NEGATIVE); URINE CLARITY CLEAR (Clear); URINE COLOR STRAW (YELLOW); URINE GLUCOSE (UA) NEG (NEGATIVE); URINE HYALINE CAST 0-2 /hpf (0-2); URINE LEUKOCYTE ESTERASE NEG Leu/uL (Negative); URINE PROTEIN NEGATIVE (NEGATIVE); URINE UROBILINOGEN 0.2-1.0 mg/dL (0.2-1.0)
[2018-10-04] MEDS ORDERED: Dexamethasone 4 mg/1 ml ONE ×2 (09:07→09:08)
[2018-10-04] MEDS ORDERED: Tranexamic Acid 100 mg/ml IV ONE (09:30)
[2018-10-04] MEDS ORDERED: ePHEDrine 50 mg/ml Inj ONE (09:37)
[2018-10-04] MEDS ORDERED: Naloxone 0.4 mg/ml Inj (Adult) ONE (10:14)
[2018-10-04] MEDS ORDERED: Bacitracin OINT 15GM TOP ONE (10:42)
[2018-10-04] MEDS ORDERED: Oxycodone/Acetaminophen 5/325 mg Tab PO PRN ×3 (11:53→18:00)
[2018-10-04] MEDS ORDERED: Lactated Ringer's 1,000 ML IV SCH ×2 (12:00→12:15)
[2018-10-04] MEDS ORDERED: HYDROmorphone 0.5 mg/0.5 ml ISec IVP PRN (12:02)
--- NOTE | 2018-10-04 12:07 | PCM.ANESB3 ---
Femoral Nerve Block - Femoral Nerve Block Date of Procedure: 10/04/18 Anesthesiologist: Estevan Reardon Pre-Procedure Diagnosis: left TKR Post-Procedure Diagnosis: same Procedure Performed: Femoral Nerve Block Left - Procedure Femoral Nerve Block: The procedure was explained to the patient that it is for the post-operative pain management. Consent was obtained after a thorough discussion with the patient regarding the benefits and possible complications of local anesthetic block of the femoral nerve at the inguinal crease area. The patient was brought to the operating room and standard monitors were applied. Time-out was held with the circulating nurse to confirm the correct surgery and the appropriate block. After applying oxygen by nasal cannula and administering IV Sedation, patient was placed in supine position with fully extended lower extremities and the _left groin exposed. The femoral artery was then carefully palpated. The ultrasound transducer was then applied to this area in the transverse plane and the femoral nerve was visualized lateral to the femoral artery and underneath the fascia iliaca. After thorough identification, the inguinal crease area was prepped with Betadine solution three times and 1 % Lidocaine was injected subcutaneously for topical anesthesia. At this point, a #22 gauge Stimuplex 2-inch needle was inserted immediately lateral to the femoral artery pulse at the inguinal crease and advanced perpendicularly. The needle was inserted to the ultrasound transducer in-plane towards the femoral nerve in a [id number] direction. Needle advancement was performed carefully under direct ultrasound visualization. Nerve stimulator was used and twitch of the quadriceps muscle was obtained at current of __0.3___MA. After negative aspiration, __5___cc of __0.5___% ____bupiv was injected and this was followed with _10 cc of __0.5 % __bupiv . Under ultrasound guidance the local anesthetics were observed spreading below fascia iliaca and around the femoral nerve. The needle was removed intact and sterile dressing was applied. The patient had stable vital signs, was conscious and in no apparent distress. The patient tolerated the femoral nerve block well with stable vital signs and was prepared for subsequent surgery.
--- NOTE | 2018-10-04 12:08 | PCM.ANESB2 ---
Popliteal Nerve Block - Popliteal Nerve Block Date of Procedure: 10/04/18 Anesthesiologist: Estevan Reardon Pre-Procedure Diagnosis: left TKR Post-Procedure Diagnosis: same Procedure Performed: Popliteal Nerve Block Left - Procedure Popliteal Nerve Block: This procedure was explained to the patient that it is for post-operative pain management. Consent was obtained after a thorough discussion with the patient regarding the benefits and possible complications of local anesthetic block of the sciatic nerve at the popliteal level. The patient was brought to the operating room and standard monitors are applied. Time-out was held with the circulating nurse to confirm the correct surgery and the appropriate block. After applying oxygen by nasal cannula and administering IV Sedation, patient's operative leg was gently raised and supported and the groove in between the biceps femoris and vastus lateralis muscles was carefully palpated. The skin approximately 8cm above the popliteal crease was then marked. The ultrasound transducer was then applied to the posterior thigh approximately 8cm above the popliteal crease in the transverse plane and the sciatic nerve before its division was visualized lateral to the popliteal artery and in between the bicep femoris and semimembranosus/semitendinosus muscles. After identification, the lateral portion of the thigh was prepped with Betadine solution three times and Lidocaine 1% was injected subcutaneously for topical anesthesia. At this point, a # 21 gauge Stimuplex insulated 4 inch needle was inserted into pre-marked area and advanced in a perpendicular direction. The needle was inserted above the ultrasound transducer in-plane towards the sciatic nerve in a imusquk-tb-pyhpde direction. Needle advancement was performed carefully under direct ultrasound visualization. Nerve stimulator was used and dorsiflexion of the _left____ foot was elicited at a current of __0.3___ MA. After repeated negative aspiration, __5___cc of _0.5____ % __bupiv was injected and this was flowed with _5 cc of _0.5 % _bupiv . Under ultrasound guidance the local anesthetics were observed surrounding sciatic nerve . The needle was removed intact and sterile dressing was applied. The patient tolerated the popliteal nerve block well with stable vital signs and was subsequently prepared for the surgery.
--- NOTE | 2018-10-04 12:18 | PCM.SURG1 ---
Surgeon's Initial Post Op Note - Surgeon's Notes Surgeon: Callie Board Filler: ADAN Lima/ 2nd ananda Diallo PA-C Type of Anesthesia: General Endo, Block Regional Anesthesia Administered By: Dr Fariba Rodney Pre-Operative Diagnosis: tricompartmentalOsteoarthritis L knee. tricompartmental synovitis Operative Findings: tricompartmental O/A L knee. tricvompartymentyal synovirtis Post-Operative Diagnosis: tricompasrtmnetal ostyeoarhritis L knee. tricompartmentyal synovits. posterior capsular contracture Operation Performed: L TKR. posterior capsular release. anterior and posterior synovectomy. computer navigation Specimen/Specimens Removed: cartilage/synovium/bone Estimated Blood Loss: EBL {In ML}: 55 Blood Products Given: N/A Drains Used: Hemovac Post-Op Condition: Fair Date of Surgery/Procedure: 10/04/18 Time of Surgery/Procedure: 10:10 (time in room 9:05/)
[2018-10-04] MEDS ORDERED: Sevoflurane - Inhalation Anesthetic Liq (250 ml) ONE (12:31)
--- NOTE | 2018-10-04 12:54 | RAD ---
Date of service: 10/04/2018 PROCEDURE: Left knee radiographs HISTORY: s/p L TKA COMPARISON: None TECHNIQUE: Standard protocol for this study/examination. FINDINGS: Satisfactory position alignment of components left TKA. Surgical drains identified in the soft tissues as is air at the operative site. IMPRESSION: Satisfactory postoperative status.
[2018-10-04] MEDS: ceFAZolin 1 GM in Sodium Chloride 0.9% 100 ML IVPB SCH (17:41)
[2018-10-04] MEDS ORDERED: HYDROmorphone 0.5 mg/0.5 ml ISec ONE (17:49)
[2018-10-04] MEDS ORDERED: Docusate-Senna 50 mg-8.6 mg Tab PO SCH (22:00)
[2018-10-05] MEDS: ceFAZolin 1 GM in Sodium Chloride 0.9% 100 ML IVPB SCH (01:04)
[2018-10-05] MEDS: Oxycodone/Acetaminophen 5/325 mg Tab PO PRN ×2 (06:17→14:50)
[2018-10-05] MEDS ORDERED: Levothyroxine 75 MCG TAB PO SCH ×2 (06:30→09:00)
[2018-10-05 06:35] LABS: HEMOGLOBIN 10.9 g/dL (12.0-16.0); MEAN CELL VOLUME 92.4 fl (81.0-99.0); MEAN CORPUSCULAR HEMOGLOBIN 31.1 pg (27.0-31.0); MEAN CORPUSCULAR HGB CONC 33.7 g/dL (33.0-37.0); RBC 3.51 Mil/uL (3.80-5.20); RED CELL DISTRIBUTION WIDTH 14.4 % (11.5-14.5)
[2018-10-05 06:48] LABS: BLOOD UREA NITROGEN 11 mg/dl (7-17); GFR NON-AFRICAN AMERICAN > 60
[2018-10-05 08:01] VITALS: BP 115/70; RESP 19; TEMP 97.5
[2018-10-05] MEDS ORDERED: Ergocalciferol 50,000 Intl Units Cap PO SCH (08:30)
[2018-10-05] MEDS ORDERED: Levothyroxine 25 MCG TAB PO SCH (09:00)
[2018-10-05] MEDS ORDERED: Enoxaparin 40 mg Syringe SC SCH ×2 (09:00→15:00)
--- NOTE | 2018-10-05 09:39 | CP.PCM.PN ---
Subjective - Date & Time of Evaluation Date of Evaluation: 10/05/18 Time of Evaluation: 08:30 - Subjective Subjective: Patient seen and examined at bedside comfortable. Son at bedside. Pain is well controlled. No acute events overnight. Denies CP/SOB/fever/dizziness. Objective - Vital Signs/Intake and Output Vital Signs (last 24 hours): Temp Pulse Resp BP Pulse Ox 97.5 F L 96 H 19 115/70 97 10/05/18 08:01 10/05/18 08:01 10/05/18 08:01 10/05/18 08:01 10/05/18 08:01 Intake and Output: 10/05/18 10/05/18 06:59 18:59 Output Total 65 Balance -65 - Medications Medications: Current Medications Acetaminophen (Tylenol 325mg Tab) 650 mg PO Q4 PRN PRN Reason: Fever 101 degrees fahrenheit Enoxaparin Sodium (Lovenox) 40 mg SC DAILY [facility]; Protocol Ergocalciferol (Drisdol 50,000 Intl Units Cap) 1 cap PO QWK [facility] Ferrous Sulfate (Feosol) 325 mg PO BID [facility] Folic Acid (Folic Acid) 1 mg PO DAILY [facility] Home Med (Ibandronate Sodium [Boniva]) 150 mg PO .ONCE A MONTH [facility] Insulin Human Lispro (Humalog) 0 units SC ACHS [facility]; Protocol Levothyroxine Sodium (Synthroid) 25 mcg PO QOTHERDAY@0630 [facility] Levothyroxine Sodium (Synthroid) 75 mcg PO QOTHERDAY [facility] Morphine Sulfate (Morphine) 2 mg IVP Q4 PRN PRN Reason: Pain, severe (8-10) Ondansetron HCl (Zofran Inj) 4 mg IVP ONCE PRN PRN Reason: Nausea/Vomiting Oxycodone/Acetaminophen (Percocet 5/325 Mg Tab) 2 tab PO Q4 PRN PRN Reason: Pain, moderate (4-7) Stop: 10/07/18 11:54 Oxycodone/Acetaminophen (Percocet 5/325 Mg Tab) 1 tab PO Q4 PRN PRN Reason: Pain, Mild (1-3) Stop: 10/07/18 11:54 Last Admin: 10/05/18 06:17 Dose: 1 tab Senna/Docusate Sodium (Senokot S 50 Mg-8.6 Mg) 2 tab PO HS [facility] Last Admin: 10/04/18 21:52 Dose: 2 tab - Labs Labs: 10/05/18 05:30 10/05/18 05:30 - Extremities Exam Additional comments: L knee: Knee imm in place Dressings CDI Hemovac in place with mild sanguineous drainage sensation intact SP/DP/TN motor intact EHL/FHL/TA/G pedal pulse intact calves soft NT b/l Assessment and Plan (1) Osteoarthritis of left knee Assessment & Plan: POD#1 s/p L TKA -Hemovac removed -PT/OT FWB LLE -DVT ppx -orthopedically stable for d/c to rehab -above d/w Dr. Ledesma in agreement Status: Acute
--- NOTE | 2018-10-05 09:49 | CP.PCM.DIS ---
Provider - Provider Date of Admission: 10/04/18 11:53 Attending physician: Yazmin Rubi MD Primary care physician: Jesus Ledesma III, MD Consults: 10/04/18 11:53 Case Management Referral Routine Comment: Physician Instructions: Reason For Exam: Reason for Referral: Discharge Planning Time Spent in preparation of Discharge (in minutes): 30 Diagnosis - Discharge Diagnosis (1) Osteoarthritis of left knee Status: Acute Hospital Course - Lab Results Lab Results: Most Recent Lab Values WBC 10.0 K/uL (4.8-10.8) 10/05/18 05:30 RBC 3.51 Mil/uL (3.80-5.20) L 10/05/18 05:30 Hgb 10.9 g/dL (12.0-16.0) L 10/05/18 05:30 Hct 32.4 % (34.0-47.0) L 10/05/18 05:30 MCV 92.4 fl (81.0-99.0) D 10/05/18 05:30 MCH 31.1 pg (27.0-31.0) H 10/05/18 05:30 MCHC 33.7 g/dL (33.0-37.0) 10/05/18 05:30 RDW 14.4 % (11.5-14.5) 10/05/18 05:30 Plt Count 290 K/uL (130-400) 10/05/18 05:30 Sodium 138 mmol/l (132-148) 10/05/18 05:30 Potassium 4.3 MMOL/L (3.6-5.0) 10/05/18 05:30 Chloride 103 mmol/L (98-107) 10/05/18 05:30 Carbon Dioxide 25 mmol/L (22-30) 10/05/18 05:30 Anion Gap 14 (10-20) 10/05/18 05:30 BUN 11 mg/dl (7-17) 10/05/18 05:30 Creatinine 0.5 mg/dl (0.7-1.2) L 10/05/18 05:30 Est GFR ( Amer) > 60 10/05/18 05:30 Est GFR (Non-Af Amer) > 60 10/05/18 05:30 POC Glucose (mg/dL) 296 mg/dL (65-110) H 10/04/18 23:25 Random Glucose 154 mg/dL (65-105) H 10/05/18 05:30 Calcium 9.0 mg/dL (8.4-10.2) 10/05/18 05:30 Urine Color Straw (YELLOW) 10/04/18 08:39 Urine Clarity Clear (Clear) 10/04/18 08:39 Urine pH 6.0 (5.0-8.0) 10/04/18 08:39 Ur Specific [place] 1.008 (1.003-1.030) 10/04/18 08:39 Urine Protein Negative mg/dL (NEGATIVE) 10/04/18 08:39 Urine Glucose (UA) Neg mg/dL (NEGATIVE) 10/04/18 08:39 Urine Ketones Negative mg/dL (NEGATIVE) 10/04/18 08:39 Urine Blood Negative (NEGATIVE) 10/04/18 08:39 Urine Nitrate Negative (NEGATIVE) 10/04/18 08:39 Urine Bilirubin Negative (NEGATIVE) 10/04/18 08:39 Urine Urobilinogen 0.2-1.0 mg/dL (0.2-1.0) 10/04/18 08:39 Ur Leukocyte Esterase Neg Franc[place]ka/uL (Negative) 10/04/18 08:39 Urine RBC (Auto) < 1 /hpf (0-3) 10/04/18 08:39 Urine Microscopic WBC < 1 /hpf (0-5) 10/04/18 08:39 Ur Squamous Epith Cells < 1 /hpf (0-5) 10/04/18 08:39 Urine Bacteria Rare (<OCC) 10/04/18 08:39 Hyaline Casts 0-2 /hpf (0-2) 10/04/18 08:39 Blood Type B POSITIVE 10/04/18 07:50 Antibody Screen Negative 10/04/18 07:50 BBK History Checked Patient has bt 10/04/18 07:50 - Hospital Course Hospital Course: 73 years old female with hx of HTN, Hypothyroidism and Osteoarthritis of the left knee. She has been treated with Analgesics, left knee Intraarticular injections and physical therapy without much improvement. So because of the failure of conservative treatment, she has come for an elective left Total knee replacement. Patient has had previous right knee TKR in march 2018. Patient would like to be discharged to [facility]. Patients glucose was in 200-400 range, last Hga1c was 2 weeks ago 6.8. Patient states her PMD advised her to exercises and maintain diet. - Date & Time of H&P Date of H&P: 10/05/18 Time of H&P: 09:48 Discharge Exam - Head Exam Head Exam: ATRAUMATIC, NORMOCEPHALIC - Eye Exam Eye Exam: Normal appearance - ENT Exam ENT Exam: Mucous Membranes Moist - Respiratory Exam Respiratory Exam: NORMAL BREATHING PATTERN - Cardiovascular Exam Cardiovascular Exam: REGULAR RHYTHM, +S1, +S2 Discharge Plan - Follow Up Plan Condition: GOOD Disposition: HOME/ ROUTINE Instructions: Osteoarthritis (DC), Total Knee Replacement (DC), Weight-Bearing Restrictions, Nerve Blocks Additional Instructions: follow up with dr ledesma 1 week or as per surgeon maintain knee immoblizer full weight bearing Referrals: Jesus Ledesma III, MD [Primary Care Provider] -
[2018-10-05 11:06] VITALS: PULSE 90; O2SAT 98
[2018-10-05] MEDS ORDERED: Insulin Lispro (humaLOG) 100 Units/ml Inj SC SCH (11:30)
--- NOTE | 2018-10-08 16:12 | OP ---
PROCEDURE DATE: 10/04/2018 TIME IN THE ROOM: 09:05. INCISION TIME: 10:10 PREOPERATIVE DIAGNOSIS: Tricompartmental osteoarthritis, left knee. OPERATIVE FINDINGS: 1. Tricompartmental osteoarthritis, left knee. 2. Tricompartmental synovitis. POSTOPERATIVE DIAGNOSES: 1. Tricompartmental osteoarthritis, left knee. 2. Tricompartmental synovitis. 3. Posterior capsular contracture. OPERATIONS PERFORMED: 1. Left total knee replacement. 2. Posterior capsular release. 3. Anterior and posterior synovectomy. 4. Computer navigation. SURGEON: Jesus Ledesma MD HANDYPERSON: Lesly Adkins, certified registered nursing geriatric assistant. SECOND PHOTOGRAMMETRIC SURVEYOR: Vasu Calloway PA-C. SPECIMENS REMOVED: Cartilage, synovium, bone. BLOOD LOSS: 55 mL. BLOOD PRODUCTS: No blood products given. DRAIN: One Hemovac drain employed. POSTOPERATIVE CONDITION: Stable. OPERATIVE INDICATIONS: Herb Peña is a woman who had a contralateral total knee replacement on the right, was enjoying excellent result, now wants the left knee done. The informed consent was obtained in front of her son who is a culturally competent environmental services aide. Pros, cons, risks and benefits were discussed. Possibility of mechanical failure, infection, thromboembolic disease, possibility of secondary or tertiary surgery was discussed. The patient could no longer withstand the discomfort and wished the surgery to be accomplished. OPERATIVE PROCEDURE: After having obtained informed consent, after having identified the side, site and procedure and a critical pause/time-out, after the satisfactory induction of the anesthetic, the patient identified as Herb Peña, in the supine position with all bony prominence well padded, the left lower extremity was prepped and free draped in the usual fashion for lower extremity surgery. The tourniquet had been applied, but was not yet inflated. After sterilely prepping and draping, after having performed a critical pause/time-out, after having identified the side, site and procedure, the left lower extremity was exsanguinated using a 6-inch Esmarch bandage, tourniquet which had been applied was inflated to 350 mmHg. A 6-inch straight midline approach was made to the knee. The skin incision and was carried down through the skin and subcutaneous tissue. Medial arthrotomy was accomplished. The patella was everted. The knee was flexed. The dissection was carried around posteromedially to the direct head of semimembranosus tendon. A portion of the patellar ligament was elevated. A portion of the iliotibial band insertion into the tibial plateau laterally was elevated. The tibia was dislocated anteriorly and initial osteotomy with the arthroplasty was accomplished on the tibial side. The anterior synovium on the femur was identified and a partial synovectomy was accomplished. At this point in time, the strut for the [employer] computer navigation device was placed on the anterior aspect of the femur. Pins were used to affix the strut as well as the belt or strap and the stylus was set at the posterior insertion of the anterior cruciate ligament. This having been accomplished, the sensor was applied. The accelerometer was applied. The offset was set on the ankle plate and navigation commenced. The medial malleolus was navigated. The lateral malleolus was navigated and at this point in time using the computer navigation/accelerometer, the 0 degree varus-valgus cut was set at 3.5 posterior slope as per the Medacta tibial component. The stylus was placed 10 mm above the most prominent condyle. The cutting guide was placed in that fashion, then the tibial osteotomy was accomplished. The apparatus was removed. Attention was turned to the femur. The guide pin was placed above the intercondylar notch. Distal femoral cutting guide was placed distally for the cut on the anterior aspect of the femur for the distal cut. Again, the accelerometer was placed as well as the sensor. The hip center was placed. The cut was set to 0 degrees of varus-valgus distally with 0.5 of flexion. This having been accomplished, the cutting block having been affixed, the distal cut was accomplished. anterior and posterior sizing of the femur was carried out. The lamina crystalizer operator was placed. There was found to be evidence of posterior capsular contracture, which Ms. Peña had demonstrated. The posterior capsule was elevated. The electrocautery was employed to divide the capsule. At that point posterior capsule having been released, the posterior capsule was elevated above the posterior aspect of the femur. Flexion/extension gap were balanced at this point in that fashion. Posterior capsule was released and the anterior and posterior synovectomy was accomplished. Posterior capsular release having been accomplished, anterior and posterior synovectomy having been accomplished, attention was turned to preparation of the tibia, guidance to rotation of the lateral aspect of tibial condyle, mid malleolar axis and medial third to middle of the patellar ligament insertion. The proximal tibia was prepared with guidance to rotation. At this point in time, the distal femoral cuts having been accomplished, anterior and posterior osteotomy osteotomies was accomplished, lamina crystalizer operator having been placed, the posterior capsule having been released, the router was placed and the trochlear region of the femur was reamed. At this point in time, the appropriate size femoral component was introduced. The appropriate size tibial component, 12-mm polyethylene. Flexion/extension gap was found to be balanced. Anterior and posterior sizing of the patella was accomplished and at this point in time, the freehand patellar osteotomy was accomplished, reaming was accomplished to a #1 femoral component. At this point in time, trialing was accomplished to all three components. Flexion/extension balance was found to be excellent with no evidence of a contracture, no evidence of hyperextension of patella. Balance was excellent as well. At this point in time, the femur, tibia and patella were prepared with a WaterPik and the appropriate size femoral component was cemented, tibial component of appropriate size tibial insert which was a 12 and the #1 patella was cemented. This having been accomplished, flexion/extension gap was balanced. Patella was balanced. The wound was thoroughly irrigated. Tourniquet was deflated. Hemostasis controlled with the Aquamantys. Closures in layers with #2 FiberWire, #1 Vicryl, 0 Vicryl, 2-0 Vicryl and neri for skin over an 8-inch suction Hemovac drain. Kevin Reyes compression dressing and knee immobilizer was employed. It should be noted that Vasu LOPEZ and Lesly Adkins, certified registered nursing geriatric assistant are critical to the accomplishment of the operative goal. Jesus Ledesma MD
== END 2018-10-05 16:15 | DRG 470 ==
LOC: H.OPSURG 06:22 → H.MEDSURG1 11:53
PROVIDERS: ADMIT Hospitalist; ATTEND Hospitalist
PROC: 8E0YXBZ Computer Assisted Procedure of Lower Extremity (ICD-10-PCS; 2018-10-04)
PROC: 0SRD0J9 Replacement of Left Knee Joint with Synthetic Substitute, Cemented, Open Approach (ICD-10-PCS; principal; 2018-10-04 09:45)
PROC: 3E0T3BZ Introduction of Anesthetic Agent into Peripheral Nerves and Plexi, Percutaneous Approach (ICD-10-PCS; 2018-10-04 09:45)
PROC: 3E0T33Z Introduction of Anti-inflammatory into Peripheral Nerves and Plexi, Percutaneous Approach (ICD-10-PCS; 2018-10-04 09:45)
DX: M17.12 Unilateral primary osteoarthritis, left knee (principal); D62 Acute posthemorrhagic anemia; M65.862 Other synovitis and tenosynovitis, left lower leg; E03.9 Hypothyroidism, unspecified; E11.9 Type 2 diabetes mellitus without complications; I10 Essential (primary) hypertension; Z96.651 Presence of right artificial knee joint; Z79.84 Long term (current) use of oral hypoglycemic drugs